=== PATIENT | male | born 1960 | race Caucasian/White ===

== ENCOUNTER 2017-08-25 16:29 | Emergency (ER) | payer SELFPAY ==
[~2017-08-25] VITALS: Ht 177.8 cm; Wt 77.3 kg
[2017-08-25] MEDS ORDERED: HYDROCODONE/ACETAMINOPHEN 5-325 MG TABLET PO ONE (18:15)
[2017-08-25] MEDS ORDERED: PERTUSS(ACELL),DIPH,TET VAC/PF 0.5 ML VIAL IM ONE (18:15)
[2017-08-25] MEDS ORDERED: BUPIVACAINE HCL/PF 0.25% 10 ML VIAL INJ ONE (18:15)
[2017-08-25] MEDS ORDERED: POVIDONE-IODINE 10% 15 ML SOLUTION UD TP ONE (18:15)
[2017-08-25 18:21] VITALS: BP 131/77
[2017-08-25] MEDS ORDERED: CefTRIAXone SODIUM 1 GM/VIAL IM ONE (18:30)
[2017-08-25] MEDS ORDERED: LIDOCAINE HCL/PF 1% 2 ML VIAL IM ONE (18:30)
== END 2017-08-25 19:38 | disposition home or self-care (01) ==
LOC: EMS 16:31
DX: N61.0 Mastitis without abscess (principal); N63.0 Unspecified lump in unspecified breast; F17.210 Nicotine dependence, cigarettes, uncomplicated
CPT/HCPCS: 90471; 90715; 96372; 99284; J0696; J3490 ×2